=== PATIENT | male | born 1980 | race Caucasian/White ===

== ENCOUNTER 2018-10-15 19:05 | Emergency (ER) | payer OTHER ==
--- NOTE | 2018-10-15 19:24 | EDPHY ---
H & P Stated Complaint: bumps on head, neck. neck soreness Time Seen by Provider: 10/15/18 19:24 HPI/ROS: HPI: This is a 38-year-old male who presents with Chief Complaint: bumps on head, neck. neck soreness Location: Left side of neck/head Quality: Rash and pain Duration: 5 days Signs and Symptoms: no fever, no nausea, no vomiting, no diarrhea, no urinary symptoms, no chest pain, no shortness of breath, no wheezing, no cough, no sore throat, no neck stiffness, no joint pain, + swollen glands, no ear pain, no rash Timing: Acute, constant Severity: [id number] Context: Patient reports 5 day history of rash on the left side of his scalp that is burning in nature and has not worsened or improved. He also reports swollen glands at the posterior left side of his neck. He reports that his neck feels sore. He denies fever, upper respiratory symptoms, nausea, vomiting , headache, sore throat, vision changes, photophobia. reports that he never goes to the doctor. Modifying Factors: None Comment: ROS: A comprehensive 10 system review of systems is otherwise negative aside from elements mentioned in the history of present illness. MEDICAL/SURGICAL/SOCIAL HISTORY: Medical history: Asthma. Does not take any regular medications. Surgical history: Back Surgery Social history: Nonsmoker. Employed. . Current every day smoker. Family history noncontributory. CONSTITUTIONAL: Nontoxic-appearing well-developed, well-nourished middle-aged white male, at bedside, awake and alert, no obvious distress HEENT: Atraumatic and normocephalic, PERRL, EOMI. Nares patent; no rhinorrhea; no nasal mucosal edema. Tympanic membranes clear. Oropharynx clear, no tonsillar hypertrophy, no exudate and moist pink mucosa. Airway patent. Spotty posterior left-sided cervical lymphadenopathy. No meningismus. Cardiovascular: Normal S1/S2, regular rate, regular rhythm, without murmur rub or gallop. PULMONARY/CHEST: Symmetrical and nontender. Clear to auscultation bilaterally. Good air movement. No accessory muscle usage. ABDOMEN: Soft, nondistended, nontender, no rebound, no guarding, no peritoneal signs, no masses or organomegaly. No CVAT. EXTREMITIES: 2/2 pulses, strength 5/5, no deformities, no clubbing, no cyanosis or edema. NEUROLOGICAL: no focal neuro deficits. GCS 15. SKIN: Warm and dry, annular erythematous scattered lesions noted on the left occipital scalp; no vesicles, blanches with palpation, no petechiae. Good capillary refill. Source: Patient Exam Limitations: No limitations - Personal History Current Tetanus Diphtheria and Acellular Pertussis (TDAP): Yes - Medical/Surgical History Hx Asthma: Yes Hx Chronic Respiratory Disease: No Hx Diabetes: No Hx Cardiac Disease: No Hx Renal Disease: No Hx Cirrhosis: No Hx Alcoholism: No Hx HIV/AIDS: No Hx Splenectomy or Spleen Trauma: No Other PMH: asthma, back surgery 10/18 - Social History Smoking Status: Current every day smoker Constitutional: Initial Vital Signs Temperature (C) 36.7 C 10/15/18 19:07 Heart Rate 84 10/15/18 19:07 Respiratory Rate 20 10/15/18 19:07 Blood Pressure 149/94 H 10/15/18 19:07 O2 Sat (%) 95 10/15/18 19:07 O2 Delivery Mode Room Air Allergies/Adverse Reactions: No Known Allergies Allergy (Unverified 10/15/18 19:07) Home Medications: Medication Instructions Recorded Acyclovir [Zovirax] 800 mg PO 5XD #35 tab 10/15/18 Albuterol Sulfate 10/15/18 Medical Decision Making - Diagnostics Imaging Results: Imaging Impressions Neck CT 10/15/18 19:39 Impression: The area of palpable concern corresponds to some small superficial left posterior cervical triangle lymph nodes, measuring under 1 cm in diameter. Follow-up can be obtained as clinically directed. There is no CT evidence of a "deep space" infection. Findings were discussed with Romy Rivera PA-C at 21:12, on 10/15/2018. ED Course/Re-evaluation: Vital signs reviewed and stable upon arrival. No systemic signs. IV access, laboratory studies, CT soft tissue neck ordered 2024: Labs reviewed. No signs of leukocytosis/anemia/platelet dysfunction/LEATHA/ elevated LFTs/electrolyte imbalance/sepsis/elevated inflammatory markers Called by radiologist CT soft tissue neck shows 3 lymph nodes that are mildly enlarged consistent with reactive lymphadenopathy Will start acyclovir and given Percocet prepack for presumed shingles Referral to Internal Medicine to establish care This patient was seen under the supervision of my secondary supervising physician. I evaluated care for this patient with my attending. Discussed this patient with Dr. Swan who did see the patient. Differential Diagnosis: Differential diagnosis includes but is not limited to herpes zoster, Davis's palsy, viral exanthem, viral syndrome, lymphadenopathy, lymphadenitis, meningitis. - Data Points Laboratory Results: Laboratory Results 10/15/18 19:45 10/15/18 19:45 10/15/18 10/15/18 10/15/18 19:45 19:45 19:45 WBC 7.01 10^3/uL 10^3/uL (3.80-9.50) RBC 4.92 10^6/uL 10^6/uL (4.40-6.38) Hgb 15.4 g/dL g/dL (13.7-17.5) Hct 43.3 % % (40.0-51.0) MCV 88.0 fL fL (81.5-99.8) MCH 31.3 pg pg (27.9-34.1) MCHC 35.6 g/dL g/dL (32.4-36.7) RDW 11.9 % % (11.5-15.2) Plt Count 269 10^3/uL 10^3/uL (150-400) MPV 9.8 fL fL (8.7-11.7) Neut % (Auto) 63.1 % % (39.3-74.2) Lymph % (Auto) 25.0 % % (15.0-45.0) Lawrence % (Auto) 9.7 % % (4.5-13.0) Eos % (Auto) 1.0 % % (0.6-7.6) Baso % (Auto) 1.1 % % (0.3-1.7) Nucleat RBC Rel Count 0.0 % % (0.0-0.2) Absolute Neuts (auto) 4.42 10^3/uL 10^3/uL (1.70-6.50) Absolute Lymphs (auto) 1.75 10^3/uL 10^3/uL (1.00-3.00) Absolute Monos (auto) 0.68 10^3/uL 10^3/uL (0.30-0.80) Absolute Eos (auto) 0.07 10^3/uL 10^3/uL (0.03-0.40) Absolute Basos (auto) 0.08 10^3/uL 10^3/uL (0.02-0.10) Absolute Nucleated RBC 0.00 10^3/uL 10^3/uL (0-0.01) Immature Gran % 0.1 % % (0.0-1.1) Immature Gran # 0.01 10^3/uL 10^3/uL (0.00-0.10) ESR 4 MM/HR MM/HR (0-15) VBG Lactic Acid 0.9 mmol/L mmol/L (0.7-2.1) Sodium 138 mEq/L mEq/L (135-145) Potassium 4.2 mEq/L mEq/L (3.5-5.2) Chloride 104 mEq/L mEq/L (97-110) Carbon Dioxide 26 mEq/l mEq/l (22-31) Anion Gap 8 mEq/L mEq/L (6-14) BUN 17 mg/dL mg/dL (7-23) Creatinine 1.0 mg/dL mg/dL (0.7-1.3) Estimated GFR > 60 Glucose 104 mg/dL H mg/dL (70-100) Calcium 9.5 mg/dL mg/dL (8.5-10.4) Total Bilirubin 0.5 mg/dL mg/dL (0.1-1.4) Conjugated Bilirubin 0.3 mg/dL mg/dL (0.0-0.5) Unconjugated Bilirubin 0.2 mg/dL mg/dL (0.0-1.1) AST 22 IU/L IU/L (17-59) ALT 30 IU/L IU/L (21-72) Alkaline Phosphatase 59 IU/L IU/L (38-126) C-Reactive Protein < 5.0 mg/L mg/L (<10.0) Total Protein 7.3 g/dL g/dL (6.3-8.2) Albumin 4.5 g/dL g/dL (3.5-5.0) Departure - Departure Disposition: Home, Routine, Self-Care Clinical Impression: Reactive lymphadenopathy, Rash, skin Condition: Good Instructions: Shingles (ED), Lymphadenopathy (ED) Additional Instructions: Please continue to monitor lymph nodes for the next 1-2 weeks. If they continue to increase in size, follow-up with primary care provider for further intervention. Take acyclovir 5 times a day for the next 7 days. Take Tylenol 650 mg every 4 hours and/or Ibuprofen 600 mg every 8 hours with food as needed for pain. Use Percocet every 6 hours as needed for severe/break through pain. Do not use Tylenol and Percocet concomitantly. Return at once for any worsening symptoms or concerns. Referrals: Lorena Montez MD [Medical Doctor] - 5-7 days, call for appt. Prescriptions: Acyclovir [Zovirax] 800 mg PO 5XD #35 tab
[2018-10-15] MEDS ORDERED: IOPAMIDOL (ISOVUE 370) 100 ML BTL IV ONE (19:50)
[2018-10-15 20:00] LABS: PLATELET COUNT 269 10^3/uL (150-400)
[2018-10-15] MEDS ORDERED: ACYCLOVIR 400 MG PREPACK#4 BTL TAKEHOME ONE (21:30)
[2018-10-15] MEDS ORDERED: OXYCODONE/APAP 5/325MG PREPACK#4 BTL TAKEHOME ONE (21:41)
[2018-10-15 21:59] VITALS: BP 128/66
== END 2018-10-15 21:59 | disposition home or self-care (01) ==
DX: R59.9 Enlarged lymph nodes, unspecified (principal); R21 Rash and other nonspecific skin eruption; F17.200 Nicotine dependence, unspecified, uncomplicated
CPT/HCPCS: Q9967